=== PATIENT | female | born 2005 | race Caucasian/White ===

== ENCOUNTER 2025-04-13 15:17 | Emergency (ER) | payer BC, SELFPAY ==
[2025-04-13 15:23] VITALS: BP 138/86
--- NOTE | 2025-04-13 16:07 | ED.GENMED ---
History of Present Illness
General
Chief Complaint: Headache
Source: patient
Exam Limitations: none
Time Seen by Provider: 04/13/25 16:06
Nursing documentation reviewed up to this point in time: agreed with
History of Present Illness
History of Present Illness:
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
in right hand and then a few seconds of tingling in lower face. The tingling was momentary and the rest of the symptoms lasted about an hour, took Motrin 800 mg at 11 a.m. After an hour, symptoms subsided but had a headache described as general, but
throbbing on left side back of head. This headache has been off and on since, now 06/23. Has had no further blurry vision, dizziness. No head trauma. She went to the nursing directors office and blood sugar was 91. BP was 'a little high,' attributed
to anxiety. She finished her shift until 3 p.m. then came here.
She denies nausea, vomiting, diarrhea, chest pain, or shortness of breath. She has a past history of frequent headaches related to menstrual cycles but they were never accompanied by dizziness, blurry vision, tingling. No difficulty walking.
Past History
Past History
ED Past Medical History: Other (Headaches)
ED Past Surgical History: Appendectomy
Review of Systems
Review of Systems
Allergies reviewed?: Yes
All Other Systems: ROS reviewed and negative except as documented in HPI and ROS
Constitutional: Denies fever or fatigue
Respiratory: Denies trouble breathing
Cardiac: Denies chest pain
ABD/GI: Denies abdominal pain, nausea or vomiting
Musculoskeletal: Reports no symptoms
Skin: Reports no symptoms
Neurological: Reports dizzy (earlier, none now) and headache (now 06/23, waxes and wanes); Denies weakness or numbness
Phy Exam
Physical Exam
Physical Exam:
GENERAL: No acute distress. A&Ox3.
CONSTITUTIONAL: Afebrile.
EYES: clear, conjunctivae normal, PERRL
ENMT: moist mucus membranes, Pharynx nl
RESPIRATORY: Regular respirations, nonlabored, lungs clear.
CARDIOVASCULAR: Regular rate and rhythm, no murmurs, no rubs.
GI: Soft, nontender, normal BS
MUSCULOSKELETAL: Moves with ease. Well perfused.
SKIN: Warm, dry, pink
PSYCH: Normal mood and affect. Well kept, interactive and appropriate
NEUROLOGIC: Awake, alert and oriented. Speech clear. Cranial nerves II through XII intact. Finger-nose intact. Ambulates well heel-to-toe with steady gait. No focal neurological deficits
Course
Orders/Labs/Results
Orders:
Orders
04/13/25 16:15
CT Head W/o Iv Contrast Urgent
Comment:
Reason For Exam: episode dizziness, blurred vision, headache
04/13/25 16:16
Test Result ONCE
04/13/25 16:28
Urine,Hcg qualitative screen [HCG, Urine Qualitative Screen] Urgent
Date Specimen was Collected: 04/13/25
Time Specimen was Collected: 16:17
Vital Signs
Initial and Last Documented VS:
Initial Vital Signs
Temp Pulse Resp BP Pulse Ox
97.9 F 51 18 138/86 97
04/13/25 15:23 04/13/25 15:23 04/13/25 15:23 04/13/25 15:23 04/13/25 15:23
Last Documented Vital Signs
Temp Pulse Resp BP Pulse Ox
97.9 F 51 18 138/86 97
04/13/25 15:23 04/13/25 15:23 04/13/25 15:23 04/13/25 15:23 04/13/25 16:09
MDM/Problems Addressed
Differential Diagnosis Includes:
Migraine, tension headache, headache, TIA/CVA
MDM/Problems Addressed:
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
in right hand and then a few seconds of tingling in lower face. The tingling was momentary and the rest of the symptoms lasted about an hour, took Motrin 800 mg at 11 a.m. After an hour, symptoms subsided but had a headache described as general, but
throbbing on left side back of head. This headache has been off and on since, now 06/23. Has had no further blurry vision, dizziness. No head trauma. She went to the nursing directors office and blood sugar was 91. BP was 'a little high,' attributed
to anxiety. She finished her shift until 3 p.m. then came here.
She denies nausea, vomiting, diarrhea, chest pain, or shortness of breath. She has a past history of frequent headaches related to menstrual cycles but they were never accompanied by dizziness, blurry vision, tingling. No difficulty walking.
NAD, neuro exam is unremarkable, headache is minimal at this point
Urine hCG:neg
Head CT: neg
Pt reassured.
17:00
Her headache is gone. Stable for discharge.
*Pulse Oximetry
SaO2: 97
Oxygen Mode of Delivery: Room air
Patient hypoxic: not evaluated
*Critical Care Note
Total Time (30-74mins, 75-104mins- exclusive of procedures): Not Applicable
ED Attending Note
-
Portions of this chart may have been created with voice recognition software.� Occasional wrong word or��sound alike� substitutions may have occurred due to the inherent limitations of voice recognition software.
Discharge Plan
Departure
Patient Disposition: Home (Routine Discharge)
Date of Disposition: 04/13/25
Time of Disposition: 16:49
Patient with high blood pressure during this ER visit?: No
Condition: Good
Discharge Problem:
Headache
Instructions: Headache, Adult (DC)
Referrals:
[facility] [Other] - As needed
Activity Restrictions/Additional Instructions:
As we discussed, your head CT is normal
You have a normal neurologic exam and no sign of a stroke.
Tylenol ibuprofen as needed for headaches
See your doctor if not a LOT better in 2-3 days or if your headache persists.
Interventions
Interventions:
*Risk Screen - Suicide Last Done: 04/13/25 15:23
*General Assessment Last Done: 04/13/25 15:23
*Neglect/Abuse Screening Last Done: 04/13/25 15:23
*Nursing Disposition Last Done: 04/13/25 17:06
ED- Neurological Assessment Last Done: 04/13/25 16:37
ED Swallowing Screen Last Done: 04/13/25 16:37
Discharge Date and Time
Discharge Date/Time: 04/13/25 17:07
Print Language: WELSH
[2025-04-13 16:34] LABS: HCG, Urine Qualitative Screen Negative
== END 2025-04-13 17:07 | disposition home or self-care (01) ==
LOC: EMR 15:17
PROVIDERS: Registered Nurse; EMERGENCY PHYSICIAN Emergency Medicine
DX: R51.9 Headache, unspecified (principal); Z90.49 Acquired absence of other specified parts of digestive tract; R20.2 Paresthesia of skin; R42 Dizziness and giddiness
CPT/HCPCS: 99284; 70450; 81025